=== PATIENT | female | born 1935 | race Hispanic/Latino ===

== ENCOUNTER 2017-09-04 09:02 | Outpatient (CLI) | payer MEDICARE ==
--- NOTE | 2017-09-04 15:49 | Cat Scan Report ---
Cranial CT with and without contrast. History: Memory loss. Findings: There is no evidence of acute hemorrhage or infarct. The posterior fossa is normal. Age-appropriate senescent changes are present. There are no masses or extra-axial collections. After contrast menstruation, there are no abnormal areas of parenchymal enhancement. The calvarium is intact. There is evidence of mild chronic sphenoid sinusitis. Impression: No significant intracranial abnormalities. Mild chronic sphenoid sinusitis is present.
== END 2017-09-04 09:03 | disposition home or self-care (01) ==
LOC: SPVIMAG 09:02
PROVIDERS: ATTEND Internal Medicine
DX: R41.3 Other amnesia (principal); J32.3 Chronic sphenoidal sinusitis
CPT/HCPCS: 70470; Q9967